=== PATIENT | female | born 1955 | race Caucasian/White ===

== ENCOUNTER 2023-08-21 13:02 | Inpatient (IN) | payer MEDICARE, MEDICAID ==
[~2023-08-21] VITALS: Ht 167.6 cm; Wt 58.2 kg
[2023-08-21] VITALS (27 sets, daily range): BP systolic 94–123; BP diastolic 50–60; TEMP 93.6–98.1; O2SAT 91–97
[2023-08-21 13:16] LABS: ABG BASE EXCESS -27.5 (-2.0-2.0); ABG HCO3 3.2 MMOL/L (22.0-26.0); ABG O2 SATURATION 98.1 % (95.0-99.0); ABG PARTIAL PRESSURE CO2 15.3 mmHg (35.0-45.0); ABG PARTIAL PRESSURE O2 133.2 mmHg (75.0-100.0); ABG STANDARD HCO3 5.7 MMOL/L. (22.0-26.0); ABG TOTAL CO2 3.7 MMOL/L (23.0-31.0); ABG pH (ARTERIAL) 6.939 UNITS (7.350-7.450)
[2023-08-21] MEDS ORDERED: INSULIN IV RATE CHANGE DOCUMENTATION ML/HR XX SCH (13:20)
[2023-08-21] MEDS ORDERED: MED REC IN PROGRESS XX SCH (13:30)
[2023-08-21 13:33] LABS: BASO # 0.1 10^3/uL (0.0-0.2); BASO % 0.3 % (0.0-1.0); HEMATOCRIT 40.9 % (36.0-47.0); HEMOGLOBIN 12.3 g/dl (12.0-15.5); LYMPH # 2.4 10^3/uL (1.5-5.0); LYMPH % 9.9 % (24.0-44.0); MEAN CORPUSCULAR HEMOGLOBIN 34.1 pg (27.0-33.0); MEAN CORPUSCULAR HGB CONC 30.1 g/dl (32.0-36.5); MEAN CORPUSCULAR VOLUME 113.3 fl (80.0-96.0); MONO # 1.9 10^3/uL (0.0-0.8); NEUTROPHILS % 78.9 % (36.0-66.0); PLATELET COUNT, AUTOMATED 228 10^3/uL (150-450); RED BLOOD COUNT 3.61 10^6/uL (4.00-5.40); WHITE BLOOD COUNT 24.1 10^3/uL (4.0-10.0)
[2023-08-21] MEDS: INSULIN REGULAR IN 0.9 % NACL 100 UNIT in IV 1 EA IV SCH ×2 (13:47→18:36)
[2023-08-21] MEDS: HumuLIN R (REGULAR) INSULIN (NovoLIN R) **100U/ML** PER UNIT IV ONE (13:48)
[2023-08-21] MEDS: NS 1,000 ML IV ONE ×2 (13:49→15:10)
[2023-08-21] MEDS: cefTRIAXone SOD 2 GM in D5W MINI-BAG PLUS 50 ML IV ONE (14:03)
[2023-08-21 14:04] LABS: RSV AMPLIFICATION NEGATIVE (NEGATIVE)
[2023-08-21 14:05] LABS: ETHYL ALCOHOL (ETHANOL) < 0.003 % (0.000-0.010)
[2023-08-21 14:06] LABS: CPK CREATINE PHOSPHOKINASE 621 U/L (34-145)
[2023-08-21 14:07] LABS: SALICYLATE LEVEL < 3.0 MG/DL (<30)
[2023-08-21 14:25] LABS: ACETONE/KETONE > 4.50 MMOL/L (0.02-0.27); ALBUMIN 3.1 G/DL (3.2-5.2); ALKALINE PHOSPHATASE 112 U/L (46-116); ALT/SGPT 36 U/L (7.0-40); AST/SGOT 40 U/L (<34); BILIRUBIN,DIRECT 0.1 MG/DL (<0.4); BILIRUBIN,TOTAL 0.2 MG/DL (0.3-1.2); BLOOD UREA NITROGEN 77 MG/DL (9-23); CALCIUM LEVEL 8.7 MG/DL (8.3-10.6); CARBON DIOXIDE LEVEL < 10.0 MMOL/L (20-31); CHLORIDE LEVEL 93 MMOL/L (98-107); CK-MB VALUE MASS 5.7 NG/ML (<3.6); CREATININE FOR GFR 2.25 MG/DL (0.55-1.30); GLOMERULAR FILTRATION RATE 23.1 (>45); GLUCOSE, FASTING 777 MG/DL (74-106); MAGNESIUM LEVEL 3.3 MG/DL (1.8-2.4); MB/CK RELATIVE INDEX 0.91 (< OR =4); PHOSPHORUS LEVEL 12.7 MG/DL (2.4-5.1); POTASSIUM SERUM 5.1 MMOL/L (3.5-5.1); SODIUM LEVEL 138 MMOL/L (136-145); THYROID STIMULATING HORMONE 1.742 uIU/ML (0.55-4.78); TOTAL PROTEIN 6.5 G/DL (5.7-8.2)
[2023-08-21] MEDS ORDERED: MED REC CURRENTLY UNOBTAINABLE XX SCH (14:30)
[2023-08-21] MEDS: INSULIN IV RATE CHANGE DOCUMENTATION ML/HR XX SCH (16:32)
[2023-08-21 17:37] LABS: BLOOD UREA NITROGEN 82 MG/DL (9-23); CALCIUM LEVEL 7.3 MG/DL (8.3-10.6); CARBON DIOXIDE LEVEL < 10.0 MMOL/L (20-31); CHLORIDE LEVEL 106 MMOL/L (98-107); CREATININE FOR GFR 2.13 MG/DL (0.55-1.30); GLOMERULAR FILTRATION RATE 24.6 (>45); GLUCOSE, FASTING 671 MG/DL (74-106); PHOSPHORUS LEVEL 7.9 MG/DL (2.4-5.1); POTASSIUM SERUM 3.6 MMOL/L (3.5-5.1); SODIUM LEVEL 145 MMOL/L (136-145)
[2023-08-21 17:40] LABS: HEMOGLOBIN A1c 8.6 % (4.0-6.0)
[2023-08-21] MEDS: LR 1,000 ML IV SCH (17:59)
[2023-08-21] MEDS: KCL 10MEQ/100ML SWI (KRUN) 10 MEQ in IV 1 EA IV SCH (18:43)
[2023-08-21 19:02] LABS: VENOUS HCO3 7.9 MMOL/L (23.0-27.0); VENOUS O2 SATURATION 99.5 % (60.0-80.0); VENOUS PARTIAL PRESSURE CO2 22.5 mmHg (38.0-50.0); VENOUS PARTIAL PRESSURE O2 185.7 mmHg (30.0-50.0); VENOUS PH 7.161 UNITS (7.330-7.430); VENOUS STANDARD HCO3 10.5 MMOL/L; VENOUS TOTAL CO2 8.5 MMOL/L (24.0-28.0)
[2023-08-21] MEDS: PANTOPRAZOLE 40MG VIAL IV SCH (20:02)
[2023-08-21] MEDS: KCL 20MEQ IN D5/0.45NS 1000ML 1,000 ML IV SCH (21:24)
[2023-08-21 21:49] LABS: CALCIUM LEVEL 7.4 MG/DL (8.3-10.6); CREATININE FOR GFR 1.96 MG/DL (0.55-1.30); GLOMERULAR FILTRATION RATE 27.1 (>45); PHOSPHORUS LEVEL 3.7 MG/DL (2.4-5.1); POTASSIUM SERUM 3.8 MMOL/L (3.5-5.1)
[2023-08-21] MEDS: HEPARIN SOD (PORCINE) 5000UNITS/ML 1ML VIAL/SYRINGE SC SCH (22:06)
[2023-08-21] MEDS: POTASSIUM CHLORIDE INJ 30 MEQ in NS 0.45% 1,000 ML IV SCH (23:53)
[2023-08-22] VITALS (25 sets, daily range): BP systolic 113–176; BP diastolic 55–96; TEMP 98.4–99; O2SAT 91–95
[2023-08-22 00:08] LABS: VENOUS BASE EXCESS -8.5 (-2.0-2.0); VENOUS HCO3 15.9 MMOL/L (23.0-27.0); VENOUS O2 SATURATION 99.2 % (60.0-80.0); VENOUS PARTIAL PRESSURE CO2 29.7 mmHg (38.0-50.0); VENOUS PARTIAL PRESSURE O2 186.9 mmHg (30.0-50.0); VENOUS PH 7.347 UNITS (7.330-7.430); VENOUS STANDARD HCO3 17.7 MMOL/L; VENOUS TOTAL CO2 16.8 MMOL/L (24.0-28.0)
[2023-08-22 00:45] LABS: CALCIUM LEVEL 7.3 MG/DL (8.3-10.6); CREATININE FOR GFR 1.91 MG/DL (0.55-1.30); GLOMERULAR FILTRATION RATE 27.9 (>45); PHOSPHORUS LEVEL 2.3 MG/DL (2.4-5.1); POTASSIUM SERUM 3.9 MMOL/L (3.5-5.1)
[2023-08-22] MEDS: HumuLIN R (REGULAR) INSULIN (NovoLIN R) **100U/ML** PER UNIT IV STA (01:20)
[2023-08-22 02:04] LABS: AMPHETAMINES LEVEL URINE NEGATIVE (NEGATIVE); BARBITURATES URINE NEGATIVE (NEGATIVE); BENZODIAZEPINES URINE NEGATIVE (NEGATIVE); CANNABINOIDS URINE NEGATIVE (NEGATIVE); COCAINE METABOLITE URINE NEGATIVE (NEGATIVE); METHADONE URINE NEGATIVE (NEGATIVE); OPIATES URINE NEGATIVE (NEGATIVE); PHENCYCLIDINE URINE NEGATIVE (NEGATIVE)
[2023-08-22 05:38] LABS: CALCIUM LEVEL 7.7 MG/DL (8.3-10.6); CREATININE FOR GFR 1.78 MG/DL (0.55-1.30); GLOMERULAR FILTRATION RATE 30.3 (>45); PHOSPHORUS LEVEL 1.9 MG/DL (2.4-5.1)
[2023-08-22] MEDS: D5W/0.45% SODIUM CHLORIDE 1,000 ML IV SCH (06:44)
[2023-08-22] MEDS: cefTRIAXone SOD 1 GM in D5W MINI-BAG PLUS 50 ML IV SCH (08:28)
[2023-08-22 08:41] LABS: MAGNESIUM LEVEL 2.3 MG/DL (1.8-2.4)
[2023-08-22 10:00] LABS: CALCIUM LEVEL 7.5 MG/DL (8.3-10.6); CREATININE FOR GFR 1.61 MG/DL (0.55-1.30); MAGNESIUM LEVEL 2.1 MG/DL (1.8-2.4); PHOSPHORUS LEVEL 2.3 MG/DL (2.4-5.1); POTASSIUM SERUM 4.6 MMOL/L (3.5-5.1)
[2023-08-22] MEDS ORDERED: FARX1TAB3 PO (10:08)
[2023-08-22] MEDS ORDERED: AMLO1TAB24 PO (10:08)
[2023-08-22] MEDS ORDERED: ROSU10TA6 PO (10:08)
[2023-08-22] MEDS ORDERED: TORS5TAB2 PO (10:08)
[2023-08-22] MEDS ORDERED: HUMU70IN SC ×2 (10:08)
[2023-08-22] MEDS ORDERED: HOME MED LIST COMPLETE! XX SCH (10:20)
[2023-08-22] MEDS: LEVEMIR (INSULIN DETEMIR) 1 UNITS/0.01ML SC SCH (11:23)
[2023-08-22 13:32] LABS: CALCIUM LEVEL 7.7 MG/DL (8.3-10.6); CREATININE FOR GFR 1.44 MG/DL (0.55-1.30); GLOMERULAR FILTRATION RATE 38.7 (>45); MAGNESIUM LEVEL 2.2 MG/DL (1.8-2.4); PHOSPHORUS LEVEL 2.1 MG/DL (2.4-5.1); POTASSIUM SERUM 4.1 MMOL/L (3.5-5.1)
[2023-08-22] MEDS ORDERED: DEXTROSE 50% 50ML SYRINGE IV PRN (15:30)
[2023-08-22] MEDS ORDERED: GLUCOSE 4GM CHEW TABLET PO PRN (15:30)
[2023-08-22] MEDS ORDERED: GLUCAGON INJ 1MG VIAL SC PRN (15:30)
[2023-08-22] MEDS: SODIUM PHOSPHATE INJ 20 MMOL in D5W 250 ML IV ONE (16:00)
[2023-08-22] MEDS ORDERED: LABETALOL 100MG/20ML VIAL IV PRN (17:30)
[2023-08-22] MEDS: INSULIN LISPRO (NovoLOG) PER UNIT SC SCH (17:56)
[2023-08-22 21:20] LABS: BASO % 0.1 % (0.0-1.0); HEMATOCRIT 36.1 % (36.0-47.0); HEMOGLOBIN 12.4 g/dl (12.0-15.5); LYMPH # 0.6 10^3/uL (1.5-5.0); LYMPH % 6.4 % (24.0-44.0); MEAN CORPUSCULAR HEMOGLOBIN 33.5 pg (27.0-33.0); MEAN CORPUSCULAR HGB CONC 34.3 g/dl (32.0-36.5); MEAN CORPUSCULAR VOLUME 97.6 fl (80.0-96.0); MONO # 0.6 10^3/uL (0.0-0.8); MONO % 6.8 % (2.0-8.0); NEUTROPHILS # 7.8 10^3/uL (1.5-8.5); NEUTROPHILS % 86.3 % (36.0-66.0); PLATELET COUNT, AUTOMATED 141 10^3/uL (150-450)
[2023-08-23] VITALS (9 sets, daily range): BP systolic 141–163; BP diastolic 67–79; TEMP 97–99.1; O2SAT 93–96
[2023-08-23 05:15] LABS: BASO % 0.1 % (0.0-1.0); EOS % 0.1 % (0.0-3.0); HEMATOCRIT 34.8 % (36.0-47.0); HEMOGLOBIN 11.9 g/dl (12.0-15.5); LYMPH # 0.8 10^3/uL (1.5-5.0); LYMPH % 10.5 % (24.0-44.0); MEAN CORPUSCULAR HGB CONC 34.2 g/dl (32.0-36.5); MEAN CORPUSCULAR VOLUME 96.4 fl (80.0-96.0); MONO # 0.5 10^3/uL (0.0-0.8); MONO % 5.7 % (2.0-8.0); NEUTROPHILS # 6.5 10^3/uL (1.5-8.5); NEUTROPHILS % 83.2 % (36.0-66.0); PLATELET COUNT, AUTOMATED 139 10^3/uL (150-450); RED BLOOD COUNT 3.61 10^6/uL (4.00-5.40); WHITE BLOOD COUNT 7.9 10^3/uL (4.0-10.0)
[2023-08-23 06:12] LABS: ALBUMIN 2.4 G/DL (3.2-5.2); ALKALINE PHOSPHATASE 86 U/L (46-116); ALT/SGPT 54 U/L (7.0-40); AST/SGOT 175 U/L (<34); BILIRUBIN,TOTAL 0.3 MG/DL (0.3-1.2); BLOOD UREA NITROGEN 35 MG/DL (9-23); CALCIUM LEVEL 7.4 MG/DL (8.3-10.6); CARBON DIOXIDE LEVEL 24 MMOL/L (20-31); CHLORIDE LEVEL 116 MMOL/L (98-107); CPK CREATINE PHOSPHOKINASE 3161 U/L (34-145); CREATININE FOR GFR 0.92 MG/DL (0.55-1.30); GLOMERULAR FILTRATION RATE > 60.0 (>45); GLUCOSE, FASTING 158 MG/DL (74-106); MAGNESIUM LEVEL 1.8 MG/DL (1.8-2.4); PHOSPHORUS LEVEL 2.2 MG/DL (2.4-5.1); POTASSIUM SERUM 3.1 MMOL/L (3.5-5.1); SODIUM LEVEL 146 MMOL/L (136-145)
[2023-08-23] MEDS: KCL 10MEQ/100ML SWI (KRUN) 10 MEQ in IV 1 EA IV SCH (08:52)
[2023-08-23] MEDS ORDERED: DAPAGLIFLOZIN PROPANEDIOL 10MG TABLET (FARXIGA) PO SCH (09:00)
[2023-08-23] MEDS: K-PHOS ORIGINAL (POT.ACID PHOSPHATE) 500MG TAB PO SCH (09:42)
[2023-08-23] MEDS: INSULIN LISPRO (NovoLOG) PER UNIT SC SCH ×4 (12:32→20:53)
[2023-08-23] MEDS: ROSUVASTATIN 10 MG TAB (CRESTOR) PO SCH (13:55)
[2023-08-23] MEDS: amLODIPine 5 MG TAB PO SCH (13:56)
[2023-08-23] MEDS ORDERED: DEXTROSE 50% 50ML SYRINGE IV PRN (17:30)
[2023-08-23 18:21] LABS: BLOOD UREA NITROGEN 26 MG/DL (9-23); CALCIUM LEVEL 7.8 MG/DL (8.3-10.6); CARBON DIOXIDE LEVEL 25 MMOL/L (20-31); CHLORIDE LEVEL 112 MMOL/L (98-107); CREATININE FOR GFR 0.71 MG/DL (0.55-1.30); GLOMERULAR FILTRATION RATE > 60.0 (>45); GLUCOSE, FASTING 321 MG/DL (74-106); POTASSIUM SERUM 3.4 MMOL/L (3.5-5.1); SODIUM LEVEL 143 MMOL/L (136-145)
[2023-08-23] MEDS: NS 0.45% 1,000 ML IV SCH (19:23)
[2023-08-23] MEDS: POTASSIUM CHLORIDE 10MEQ SR TABLET PO ONE (19:23)
[2023-08-23] MEDS: LEVEMIR (INSULIN DETEMIR) 1 UNITS/0.01ML SC SCH (20:53)
[2023-08-23] MEDS ORDERED: INSULIN LISPRO (NovoLOG) PER UNIT SC SCH (21:00)
[2023-08-24 08:00] VITALS: BP 154/72; TEMP 100.7; O2SAT 92
[2023-08-24 10:21] LABS: BASO % 0.1 % (0.0-1.0); EOS # 0.1 10^3/uL (0.0-0.5); EOS % 0.6 % (0.0-3.0); HEMATOCRIT 37.6 % (36.0-47.0); HEMOGLOBIN 12.5 g/dl (12.0-15.5); LYMPH # 1.3 10^3/uL (1.5-5.0); LYMPH % 14.2 % (24.0-44.0); MEAN CORPUSCULAR HEMOGLOBIN 33.3 pg (27.0-33.0); MEAN CORPUSCULAR HGB CONC 33.2 g/dl (32.0-36.5); MEAN CORPUSCULAR VOLUME 100.3 fl (80.0-96.0); MONO # 0.5 10^3/uL (0.0-0.8); NEUTROPHILS # 7.5 10^3/uL (1.5-8.5); NEUTROPHILS % 79.8 % (36.0-66.0); PLATELET COUNT, AUTOMATED 109 10^3/uL (150-450); RED BLOOD COUNT 3.75 10^6/uL (4.00-5.40); WHITE BLOOD COUNT 9.4 10^3/uL (4.0-10.0)
[2023-08-24 10:51] LABS: CK-MB VALUE MASS 2.3 NG/ML (<3.6)
[2023-08-24 10:54] LABS: BLOOD UREA NITROGEN 16 MG/DL (9-23); CALCIUM LEVEL 7.7 MG/DL (8.3-10.6); CARBON DIOXIDE LEVEL 24 MMOL/L (20-31); CHLORIDE LEVEL 112 MMOL/L (98-107); CREATININE FOR GFR 0.58 MG/DL (0.55-1.30); GLOMERULAR FILTRATION RATE > 60.0 (>45); GLUCOSE, FASTING 167 MG/DL (74-106); POTASSIUM SERUM 3.4 MMOL/L (3.5-5.1); SODIUM LEVEL 140 MMOL/L (136-145)
[2023-08-24 10:58] LABS: CPK CREATINE PHOSPHOKINASE 903 U/L (34-145); MB/CK RELATIVE INDEX 0.25 (< OR =4)
[2023-08-24] MEDS: ASPIRIN 81MG CHEW TABLET PO ONE (11:54)
[2023-08-24 12:00] VITALS: BP 136/63; TEMP 100.5; O2SAT 92
[2023-08-24 12:40] LABS: CHOLESTEROL LEVEL 102 MG/DL (<200); CHOLESTEROL RISK RATIO 2.11 (<5); HDL CHOLESTEROL 48.3 MG/DL (>40); LDL CHOLESTEROL 33.5 MG/DL (<100); NON-HDL-C 53.7 MG/DL; TRIGLYCERIDES LEVEL 101 MG/DL (<150)
[2023-08-24 16:00] VITALS: BP 148/68; TEMP 100.1; O2SAT 95
[2023-08-24] MEDS ORDERED: PILL CUTTER 1 EACH XX ONE (16:16)
[2023-08-24 19:36] VITALS: BP 153/74; TEMP 98.1; O2SAT 97
[2023-08-24] MEDS: PILL CUTTER 1 EACH XX PRN (19:37)
[2023-08-24] MEDS: SIMVASTATIN 20 MG TAB PO SCH (21:41)
[2023-08-24 23:46] VITALS: BP 148/67; TEMP 98.4; O2SAT 93
[2023-08-25 00:39] LABS: CK-MB VALUE MASS < 1.0 NG/ML (<3.6)
[2023-08-25 00:40] LABS: CPK CREATINE PHOSPHOKINASE 585 U/L (34-145); MB/CK RELATIVE INDEX 0.17 (< OR =4)
[2023-08-25 04:29] VITALS: BP 138/88; TEMP 99; O2SAT 93
[2023-08-25 05:00] LABS: BASO % 0.1 % (0.0-1.0); EOS # 0.2 10^3/uL (0.0-0.5); EOS % 1.8 % (0.0-3.0); HEMATOCRIT 32.5 % (36.0-47.0); HEMOGLOBIN 11.2 g/dl (12.0-15.5); MEAN CORPUSCULAR HEMOGLOBIN 33.7 pg (27.0-33.0); MEAN CORPUSCULAR HGB CONC 34.5 g/dl (32.0-36.5); MEAN CORPUSCULAR VOLUME 97.9 fl (80.0-96.0); MONO # 0.6 10^3/uL (0.0-0.8); MONO % 5.6 % (2.0-8.0); NEUTROPHILS # 7.8 10^3/uL (1.5-8.5); NEUTROPHILS % 73.1 % (36.0-66.0); RED BLOOD COUNT 3.32 10^6/uL (4.00-5.40); WHITE BLOOD COUNT 10.7 10^3/uL (4.0-10.0)
[2023-08-25 05:21] LABS: CK-MB VALUE MASS < 1.0 NG/ML (<3.6)
[2023-08-25 05:22] LABS: BLOOD UREA NITROGEN 14 MG/DL (9-23); CALCIUM LEVEL 7.6 MG/DL (8.3-10.6); CARBON DIOXIDE LEVEL 25 MMOL/L (20-31); CHLORIDE LEVEL 112 MMOL/L (98-107); CREATININE FOR GFR 0.57 MG/DL (0.55-1.30); GLOMERULAR FILTRATION RATE > 60.0 (>45); GLUCOSE, FASTING 64 MG/DL (74-106); POTASSIUM SERUM 3.3 MMOL/L (3.5-5.1); SODIUM LEVEL 142 MMOL/L (136-145)
[2023-08-25 05:24] LABS: CPK CREATINE PHOSPHOKINASE 515 U/L (34-145); MB/CK RELATIVE INDEX 0.19 (< OR =4)
[2023-08-25 05:44] LABS: PLATELET COUNT, AUTOMATED 91 10^3/uL (150-450)
[2023-08-25] MEDS ORDERED: ASPI81CH8 PO (07:33)
[2023-08-25] MEDS ORDERED: INSUDET SC (07:33)
[2023-08-25 07:43] VITALS: BP 157/74; TEMP 98.9; O2SAT 94
[2023-08-25] MEDS ORDERED: INSUHUMDS SC ×2 (08:48→08:50)
[2023-08-25] MEDS: ASPIRIN 81MG CHEW TABLET PO SCH (08:59)
[2023-08-25 09:00] VITALS: BP 157/74
[2023-08-25] MEDS ORDERED: LANTINJ4 SC (09:36)
== END 2023-08-25 10:44 | disposition home or self-care (01) | DRG 637 ==
LOC: EDBD 13:02 → M ED 13:02 → M ED INP 15:52 → M ICU 17:10
PROVIDERS: ADMIT Internal Medicine Pulmonary Disease; ATTEND General Practice
PROC: B246ZZZ Ultrasonography of Right and Left Heart (ICD-10-PCS; principal; 2023-08-24)
DX: E11.10 Type 2 diabetes mellitus with ketoacidosis without coma (principal); G93.41 Metabolic encephalopathy; I24.89 Other forms of acute ischemic heart disease; E87.20 Acidosis, unspecified; N17.9 Acute kidney failure, unspecified; M62.82 Rhabdomyolysis; E11.65 Type 2 diabetes mellitus with hyperglycemia; I95.9 Hypotension, unspecified; R68.0 Hypothermia, not associated with low environmental temperature; R94.31 Abnormal electrocardiogram [ECG] [EKG]; I10 Essential (primary) hypertension; E78.5 Hyperlipidemia, unspecified; I44.0 Atrioventricular block, first degree; L89.150 Pressure ulcer of sacral region, unstageable; R33.9 Retention of urine, unspecified; E83.39 Other disorders of phosphorus metabolism; Z79.4 Long term (current) use of insulin; Z79.899 Other long term (current) drug therapy; Z79.82 Long term (current) use of aspirin; Z88.8 Allergy status to other drugs, medicaments and biological substances

== ENCOUNTER → 2023-09-30 | Outpatient (CLI) | payer MEDICARE, MEDICAID ==
[~2023-09-30] MED LIST: AMLO1TAB24 PO; ASPI81CH8 PO; FARX1TAB3 PO; HUMU70IN SC; INSUDET SC; INSUHUMDS SC; LANTINJ4 SC; ROSU10TA6 PO; TORS5TAB2 PO
[2023-09-30 12:41] LABS: BLOOD UREA NITROGEN 28 MG/DL (9-23); CREATININE FOR GFR 0.81 MG/DL (0.55-1.30); GLOMERULAR FILTRATION RATE > 60.0 (>45)
== END ==
LOC: M WUC 08:11
PROVIDERS: ATTEND Physician Assistant
DX: Z01.818 Encounter for other preprocedural examination (principal); I70.234 Atherosclerosis of native arteries of right leg with ulceration of heel and midfoot

== ENCOUNTER → 2023-10-03 | Outpatient (CLI) | payer MEDICARE, MEDICAID ==
[~2023-10-03] MED LIST changes: +ISOVUE-370 76% 100ML VIAL As Ordered ONE
== END ==
LOC: M RAD 13:33
PROVIDERS: ATTEND Physician Assistant
DX: I70.634 Atherosclerosis of nonbiological bypass graft(s) of the right leg with ulceration of heel and midfoot (principal)
CPT/HCPCS: 75635; Q9967